=== PATIENT | male | born 1990 | race Caucasian/White ===

== ENCOUNTER 2016-09-23 07:31 | Emergency (ER) | payer BC ==
[2016-09-23] MEDS ORDERED: Ibuprofen 800 MG Tab PO ONE (07:48)
--- NOTE | 2016-09-23 07:51 | EDM.PDOC ---
ED HPI Trauma - General Chief Complaint: Lower Extremity Injury/Pain Stated Complaint: ANKLE INJURY Time Seen by Provider: 09/23/16 07:48 - History of Present Illness INITIAL COMMENTS - FREE TEXT/NARRATIVE: HISTORY AND PHYSICAL: History of present illness: The patient is a healthy 26-year-old male who misstepped last night and just slightly rolled the left ankle and had some initial discomfort but it didn't seem very excessive. In the middle the night he woke up because of pain in his ankle but no proximal knee or hip pain and no distal neurosensory changes. Patient noticed some swelling this morning and came for evaluation. The pain is worse with weightbearing. Patient did not take anything for pain and has no place ice on it Review of systems: As per history of present illness and below otherwise all systems reviewed and negative. Past medical history: As per history of present illness and as reviewed below otherwise noncontributory. Surgical history: As per history of present illness and as reviewed below otherwise noncontributory. Social history: No reported history of drug or alcohol abuse. Family history: As per history of present illness and as reviewed below otherwise noncontributory. Physical exam: General: Well-developed overweight male who is nontoxic and speaking clearly and easily. Vital signs have been noted by me HEENT: Atraumatic, normocephalic, negative for conjunctival pallor or scleral icterus, mucous membranes moist, throat clear, neck supple, nontender, trachea midline. Lungs: Clear to auscultation, breath sounds equal bilaterally, chest nontender. Heart: S1S2, regular rate and rhythm no overt murmurs Abdomen: Soft, nondistended, nontender. NABS Pelvis: Stable nontender. No lateral hip tenderness on palpation Genitourinary: Deferred. Rectal: Deferred. Extremities: Atraumatic throughout all extremities with the exception of the left ankle where there is some minimal soft tissue swelling laterally without palpable bony deformities ecchymosis or erythema. There is tenderness in this area as well but the alignment is grossly normal. Proximal tib-fib knee and hip are all nontender without defects and distal foot is nontender with good pulses. The legs are, negative for cords or calf pain. Neurovascular unremarkable. Neuro: Awake, alert, oriented. Cranial nerves II through XII unremarkable. Cerebellum unremarkable. Motor and sensory unremarkable throughout. Exam nonfocal. Diagnostics: X-ray left ankle Therapeutics: Ice, Motrin, crutches, ortho boot Impression: Left ankle injury, sprain Definitive disposition and diagnosis as appropriate pending reevaluation and review of above. Allergies/ADRs: Allergies cucumber Allergy (Verified 09/23/16 07:36) throat swelling watermelon Allergy (Verified 09/23/16 07:36) throat swelling Home Medications: Ambulatory Orders . [No Known Home Meds] 09/23/16 [Confirmed 09/23/16] Past Medical History Cardiovascular History: Reports: None Respiratory History: Reports: None Musculoskeletal History: Reports: None Psychiatric History: Reports: None - Past Surgical History HEENT Surgical History: Reports: Myringotomy w tube(s), Tonsillectomy Cardiovascular Surgical History: Reports: None Musculoskeletal Surgical History: Reports: None Social & Family History - Tobacco Use Smoking Status *Q: Current Every Day Smoker Years of Tobacco use: 6 Packs/Tins Daily: 1.5 Review of Systems - Review of Systems Review Of Systems: ROS reveals no pertinent complaints other than HPI. Trauma Exam - Physical Exam Exam: See Below (see dictation) Course - Vital Signs Last Recorded V/S: Last Vital Signs Temp 36.6 C 09/23/16 07:38 Pulse 76 09/23/16 07:38 Resp 16 09/23/16 07:38 BP 150/74 H 09/23/16 07:38 Pulse Ox 99 09/23/16 07:38 - Orders/Labs/Meds Orders: Active Orders 24 hr Category Date Time Status Communication Order [RC] STAT Care 09/23/16 07:48 Active DME for Discharge [COMM] Stat Oth 09/23/16 08:40 Ordered Meds: Medications Discontinued Medications Generic Name Dose Route Start Last Admin Trade Name Freq PRN Reason Stop Dose Admin Ibuprofen 800 mg 09/23/16 07:48 09/23/16 08:13 Motrin PO 09/23/16 07:49 800 mg ONETIME ONE Administration Departure - Departure Time of Disposition: 08:41 Disposition: Home, Self-Care 01 Condition: good Clinical Impression: Left ankle sprain Qualifiers: Encounter type: initial encounter Involved ligament of ankle: unspecified ligament Qualified Code(s): S93.402A - Sprain of unspecified ligament of left ankle, initial encounter Forms: ED Department Discharge Additional Instructions: The following information is given to patients seen in the emergency department who are being discharged to home. This information is to outline your options for follow-up care. We provide all patients seen in our emergency department with a follow-up referral. The need for follow-up, as well as the timing and circumstances, are variable depending upon the specifics of your emergency department visit. If you don't have a primary care physician on staff, we will provide you with a referral. We always advise you to contact your personal physician following an emergency department visit to inform them of the circumstance of the visit and for follow-up with them and/or the need for any referrals to a consulting specialist. The emergency department will also refer you to a specialist when appropriate. This referral assures that you have the opportunity for followup care with a specialist. All of these measure are taken in an effort to provide you with optimal care, which includes your followup. Under all circumstances we always encourage you to contact your private physician who remains a resource for coordinating your care. When calling for followup care, please make the office aware that this follow-up is from your recent emergency room visit. If for any reason you are refused follow-up, please contact the [facility] emergency department at and ask to speak to the emergency department charge nurse. [facility] Specialty Care--Orthopedic clinic Professional Building [address] [place] [id number] [facility] Primary care- Internal Medicine and Family [facility] [address] [place] [id number] Ice and elevate the area. Use ortho boot and either loosen it or remove at sleeptimes. Use OTC meds or Diclofenac as prescribed. Please follow up with ortho ; call for appointment. Return to ER as needed and discussed. - My Orders Last 24 Hours: My Active Orders 09/23/16 07:48 Communication Order [RC] STAT 09/23/16 08:40 DME for Discharge [COMM] Stat - Assessment/Plan Last 24 Hours: My Active Orders 09/23/16 07:48 Communication Order [RC] STAT 09/23/16 08:40 DME for Discharge [COMM] Stat
--- NOTE | 2016-09-23 08:35 | CR ---
EXAMINATION: Left ankle HISTORY: Pain COMPARISON: None TECHNIQUE: 3 views FINDINGS/IMPRESSION: There is no acute osseous abnormality, dislocation, or fracture identified. Bon e mineralization and joint spaces appear preserved. The ankle mortise and talar dome appear intact.
[2016-09-23 09:36] VITALS: BP 138/67
== END 2016-09-23 09:22 | disposition home or self-care (01) ==
LOC: MW.ED 07:31
DX: S93.402A Sprain of unspecified ligament of left ankle, initial encounter (principal); X50.0XXA Overexertion from strenuous movement or load, initial encounter; Z98.890 Other specified postprocedural states
CPT/HCPCS: 73610; 99283; A9270